=== PATIENT | male | born 1975 | race Caucasian/White ===

== ENCOUNTER 2023-08-07 16:30 | Emergency (ER) | payer MEDICARE, MEDICAID, SELFPAY ==
[2023-08-07 16:31] VITALS: BP 108/72; PULSE 103; RESP 15; TEMP 36.8; O2SAT 94; BMI 38.4
--- NOTE | 2023-08-07 16:33 | HMH.EDGENADL ---
Discharge Plan Disposition Patient Disposition: Home, Self-Care Condition: Good Prescriptions Prescriptions: New clindamycin HCl 300 mg capsule 300 mg PO Q12H Qty: 20 0RF sulfamethoxazole-trimethoprim [Bactrim DS] 800-160 mg tablet 1 tab PO DAILY 10 Days Qty: 10 0RF Referrals Follow up/Referrals: Provider,Referral, [Primary Care Provider] - See instructions Kylie Feliciano DPM [Staff Physician] - See instructions Clinical Impressions Clinical Impression: Diabetic foot ulcer Qualifiers: Diabetic foot ulcer location: toe Laterality: right Instructions Patient Instructions: DI for Laceration Repair Discharge ED Provider: Ava Pinedo General Adult HPI <MIRACLE Saavedra - Last Filed: 08/07/23 17:43> General Chief complaint: Wound/Laceration Stated complaint: pressure ulcer Big toe RT foot Time Seen by Provider: 08/07/23 16:33 History of Present Illness HPI narrative: Patient presents for evaluation of a diabetic foot ulcer. Patient has had a known diabetic foot ulcer of the plantar surface of the right hallux for over a year. Patient last saw a physician for this more than 6 months ago. Patient continues to smoke 2 packs a day. Patient noted that it is turned red and began to be more hurtful at the MCP joint over the last 2 to 3 days. Patient denies chest pain fever chills hemoptysis hematochezia melena nausea vomiting diarrhea. Related Data Previous Rx's Medication Instructions Recorded clindamycin HCl 300 mg capsule 300 mg PO Q12H #20 caps 08/07/23 sulfamethoxazole 800 1 tab PO DAILY 10 days #10 tabs 08/07/23 mg-trimethoprim 160 mg tablet (Bactrim DS) Allergies Allergy/AdvReac Type Severity Reaction Status Date / Time azithromycin [From Zithromax] Allergy Verified 08/07/23 16:43 PFS <MIRACLE Saavedra - Last Filed: 08/07/23 17:43> [facility] Disclaimer: The information contained in this section may have been updated after the patient was seen, as this information can be updated by other users. Social History (Updated 08/07/23 @ 17:43 by MIRACLE Saavedra) Smoking Status: Current every day smoker alcohol intake: never current occupational status: unemployed Travel in the last 8 weeks: None <MIRACLE Saavedra - Last Filed: 08/07/23 17:43> ROS Obtained: Yes Systems reviewed as appropriate & no additional complaints except as documented Physical Exam <MIRACLE Saavedra - Last Filed: 08/07/23 17:43> General General appearance: alert and in no apparent distress Head Head exam: atraumatic and normal inspection Eye Eye exam: Present normal appearance and EOMI ENT ENT exam: Present normal exam, normal oropharynx and mucous membranes moist Neck Neck exam: Present normal inspection Respiratory Respiratory exam: Present normal lung sounds bilaterally Cardiovascular Cardiovascular exam: Present regular rate and normal rhythm Abdominal Exam Abdominal exam: Absent normal bowel sounds Extremities Exam Extremities exam: Present normal inspection (Bilateral upper extremities are intact grossly to exam full range of motion) Neurological Exam Neurological exam: Present alert and oriented X3 Lymphatic Lymphatic Findings: no adenopathy Other Other exam information: Lamination of the bilateral lower extremities shows that them both to be hairless. Patient has already had amputations of the fourth and fifth toes of the right foot. On the plantar surface of the right hallux there is a quarter sized area that is ulcerated with a thick keratinized collar there is no purulent debris however the wound extends to the soft tissue at the MCP joint. There is some fibrinous exudate. There is erythema extending from the MCP joint medially along the medial aspect of the foot towards the medial malleolus. The borders have been marked by myself with an ink pen. There is no edema or induration. Medical Decision Making <MIRACLE Saavedra - Last Filed: 08/07/23 17:43> Medical Records Medical records reviewed: Yes I reviewed the patient's medical records. Luca Inquiry Pt receiving controlled substance: No Vital Signs: 08/07/23 16:31 08/07/23 16:54 08/07/23 17:00 Temperature 98.2 F Temperature Source Oral Pulse Rate 111 H 104 H Pulse Rate [Left Radial] 103 H Respiratory Rate 15 Blood Pressure 149/75 H 143/81 H Blood Pressure [Right Arm] 108/72 L Blood Pressure Mean 82 89 Blood Pressure Mean [Right Arm] 84 Blood Pressure Source 02 Sat by Pulse Oximetry 94 L 93 L 94 L Oxygen Delivery Method Room Air 08/07/23 17:44 Temperature 98.2 F Temperature Source Oral Pulse Rate 99 H Pulse Rate [Left Radial] Respiratory Rate 20 Blood Pressure 132/62 Blood Pressure [Right Arm] Blood Pressure Mean Blood Pressure Mean [Right Arm] Blood Pressure Source Automatic Cuff 02 Sat by Pulse Oximetry Oxygen Delivery Method Room Air Lab Data Lab results reviewed: Yes I reviewed the patient's lab results. Lab Results 08/07/23 16:50: WBC 12.3 H, RBC 5.19, Hgb 16.2, Hct 49.7, MCV 95.8 H, MCH 31.2, MCHC 32.6, RDW 13.6, Plt Count 194, MPV 8.7, Neut % (Auto) 75.0, Lymph % (Auto) 17.5, [place] % (Auto) 4.5, Eos % (Auto) 2.0, Baso % (Auto) 1.0, Neut # (Auto) 9.2 H, Lymph # (Auto) 2.2, [place] # (Auto) 0.6, Eos # (Auto) 0.2, Baso # (Auto) 0.1, ESR 23 H, Sodium 133 L, Potassium 4.4, Chloride 100, Carbon Dioxide 31 H, Anion Gap 6.4, BUN 12, Creatinine 0.90, Estimated Creat Clear 169, Estimated GFR 90, Est GFR ( Amer) 109, Glucose 308 H, Calcium 9.3, C-Reactive Protein 44.1 H 08/07/23 16:50 08/07/23 16:50 Orders (Tests/Meds): ED MEDICATIONS Discontinued Medications Generic Name Dose Route Start Last Admin Trade Name Freq PRN Reason Stop Dose Admin Acetaminophen 1,000 mg 08/07/23 16:49 08/07/23 16:57 Acetaminophen 500mg Tab PO 08/07/23 16:50 1,000 mg ONCE ONE Administration Ketorolac Tromethamine 15 mg 08/07/23 16:49 08/07/23 16:57 Ketorolac 30mg/Ml Vial IV 08/07/23 16:50 15 mg ONCE ONE Administration ORDERS Category Date Time Status Foot XR right minimum 3 views [XR foot RT min 3V] Stat Exams 08/07/23 16:42 Completed BMP [Basic Metabolic Panel] Stat Lab 08/07/23 16:50 Completed CBC w/Auto Diff [Complete Blood Count Auto Diff] Stat Lab 08/07/23 16:50 Completed CRP [C-Reactive Protein] Stat Lab 08/07/23 16:50 Completed Erythrocyte Sedimentation Rate Stat Lab 08/07/23 16:50 Completed Medical Decision Narrative: In summary patient is a in summary patient is a 48-year-old male who presents to the emergency department for evaluation of diabetic foot ulcer of the right hallux. Patient is hemodynamically stable upon arrival, febrile. Physical exam is remarkable for well-established diabetic foot ulcer with very thick keratinized border with no evidence of purulence but with fibrinous exudate at the ulcer base. There is an area of erythema at the MCP joint spreading medially towards the medial malleolus. The borders of the marked by an ink pen by myself. Differential diagnosis includes diabetic foot ulcer versus osteomyelitis versus septic joint versus deep space abscess versus necrotizing fasciitis Cetera. Initial workup will be conducted with mental logic labs plain film x-rays. Initial interventions include Toradol and Tylenol. Initial workup reviewed by me shows a glucose of 300 slightly elevated white count with an absolute neutrophil count of 9.2 and my informal interpretation of his plain film x-ray of his right foot shows no obvious bony destruction or other acute processes. Upon repeat evaluation patient had acceptable resolution of his pain. Given this appropriate for discharge with prescriptions for Bactrim and clindamycin with a referral to podiatry. <Ava Pinedo MD - Last Filed: 08/07/23 19:35> Vital Signs: 08/07/23 16:31 08/07/23 16:54 08/07/23 17:00 Temperature 98.2 F Temperature Source Oral Pulse Rate 111 H 104 H Pulse Rate [Left Radial] 103 H Respiratory Rate 15 Blood Pressure 149/75 H 143/81 H Blood Pressure [Right Arm] 108/72 L Blood Pressure Mean 82 89 Blood Pressure Mean [Right Arm] 84 Blood Pressure Source 02 Sat by Pulse Oximetry 94 L 93 L 94 L Oxygen Delivery Method Room Air 08/07/23 17:44 Temperature 98.2 F Temperature Source Oral Pulse Rate 99 H Pulse Rate [Left Radial] Respiratory Rate 20 Blood Pressure 132/62 Blood Pressure [Right Arm] Blood Pressure Mean Blood Pressure Mean [Right Arm] Blood Pressure Source Automatic Cuff 02 Sat by Pulse Oximetry Oxygen Delivery Method Room Air Lab Data Lab Results 08/07/23 16:50: WBC 12.3 H, RBC 5.19, Hgb 16.2, Hct 49.7, MCV 95.8 H, MCH 31.2, MCHC 32.6, RDW 13.6, Plt Count 194, MPV 8.7, Neut % (Auto) 75.0, Lymph % (Auto) 17.5, [place] % (Auto) 4.5, Eos % (Auto) 2.0, Baso % (Auto) 1.0, Neut # (Auto) 9.2 H, Lymph # (Auto) 2.2, [place] # (Auto) 0.6, Eos # (Auto) 0.2, Baso # (Auto) 0.1, ESR 23 H, Sodium 133 L, Potassium 4.4, Chloride 100, Carbon Dioxide 31 H, Anion Gap 6.4, BUN 12, Creatinine 0.90, Estimated Creat Clear 169, Estimated GFR 90, Est GFR ( Amer) 109, Glucose 308 H, Calcium 9.3, C-Reactive Protein 44.1 H Orders (Tests/Meds): ED MEDICATIONS Discontinued Medications Generic Name Dose Route Start Last Admin Trade Name Freq PRN Reason Stop Dose Admin Acetaminophen 1,000 mg 08/07/23 16:49 08/07/23 16:57 Acetaminophen 500mg Tab PO 08/07/23 16:50 1,000 mg ONCE ONE Administration Ketorolac Tromethamine 15 mg 08/07/23 16:49 08/07/23 16:57 Ketorolac 30mg/Ml Vial IV 08/07/23 16:50 15 mg ONCE ONE Administration ORDERS Category Date Time Status Foot XR right minimum 3 views [XR foot RT min 3V] Stat Exams 08/07/23 16:42 Completed BMP [Basic Metabolic Panel] Stat Lab 08/07/23 16:50 Completed CBC w/Auto Diff [Complete Blood Count Auto Diff] Stat Lab 08/07/23 16:50 Completed CRP [C-Reactive Protein] Stat Lab 08/07/23 16:50 Completed Erythrocyte Sedimentation Rate Stat Lab 08/07/23 16:50 Completed Medical Decision Narrative: In summary patient is a in summary patient is a 48-year-old male who presents to the emergency department for evaluation of diabetic foot ulcer of the right hallux. Patient is hemodynamically stable upon arrival, febrile. Physical exam is remarkable for well-established diabetic foot ulcer with very thick keratinized border with no evidence of purulence but with fibrinous exudate at the ulcer base. There is an area of erythema at the MCP joint spreading medially towards the medial malleolus. The borders of the marked by an ink pen by myself. Differential diagnosis includes diabetic foot ulcer versus osteomyelitis versus septic joint versus deep space abscess versus necrotizing fasciitis Cetera. Initial workup will be conducted with mental logic labs plain film x-rays. Initial interventions include Toradol and Tylenol. Initial workup reviewed by me shows a glucose of 300 slightly elevated white count with an absolute neutrophil count of 9.2 and my informal interpretation of his plain film x-ray of his right foot shows no obvious bony destruction or other acute processes. At this time he does not seem to have signs on his physical exam, labs, or x-rays of osteomyelitis, necrotizing fasciitis, but more likely has superimposed cellulitis on a chronic nonhealing diabetic foot ulcer. Upon repeat evaluation patient had acceptable resolution of his pain. Given this appropriate for discharge with prescriptions for Bactrim and clindamycin with a referral to podiatry. Attestation: I was consulted by the JESSE, and we discussed the complexity of the problems being addressed. I approved the treatment and management plan for this patient's care in the emergency department, thus performing a substantive portion of the medical decision making. I also had interactive discussion with patient, counseling him on tobacco cessation and advising him that this is essential to prevent worsening of his foot wound. Signed, Ava Pinedo MD Critical Care <MIRACLE Saavedra - Last Filed: 08/07/23 17:43> Critical Care Time Critical Care Time: No
--- NOTE | 2023-08-07 16:42 | XR_ITS ---
PROCEDURE INFORMATION: Exam: XR Right Foot Exam date and time: 08/07/2023 4:59 PM Age: 48 years old Clinical indication: Condition or disease; Other: Diabetic foot ulcer; Prior surgery; Surgery date: 6+ months; Surgery type: Toes removed TECHNIQUE: Imaging protocol: Radiologic exam of the right foot. Views: 3 or more views. COMPARISON: No relevant prior studies available. FINDINGS: Bones/joints: Previous amputation of the 4th and 5th toes at the level of the proximal diaphyses of the 4th and 5th metatarsals. No cortical erosion or periosteal reaction. No fracture or dislocation. Small posterior calcaneal enthesophyte. Soft tissues: Normal. IMPRESSION: 1. Previous amputation of the 4th and 5th toes. 2. No acute findings.
[2023-08-07 16:54] VITALS: BP 149/75; PULSE 111; O2SAT 93
[2023-08-07] MEDS: ACETAMINOPHEN 500MG TAB 1000 MG PO (16:57)
[2023-08-07] MEDS: KETOROLAC 30MG/ML VIAL 15 MG IV (16:57)
[2023-08-07 16:59] LABS: Basophils # 0.1 K/mm3 (0-0.2); Eosinophils # 0.2 K/mm3 (0.0-0.4); Hematocrit 49.7 % (42.0-52.0); Hemoglobin 16.2 g/dL (14.1-18.0); Lymphocytes # 2.2 K/mm3 (0.7-4.5); Lymphocytes % 17.5 % (10-50); Mean Corpuscular HGB Conc 32.6 g/dL (31.8-35.4); Mean Corpuscular Hemoglobin 31.2 pg (27.0-31.2); Mean Corpuscular Volume 95.8 fl (80-94); Mean Platelet Volume 8.7 fl (7.4-10.4); Monocytes # 0.6 K/mm3 (0.1-1.0); Monocytes % 4.5 % (1.7-9.3); Neutrophils # 9.2 K/mm3 (1.8-7.8); Platelet Count 194 K/mm3 (142-424); Red Blood Count 5.19 M/mm3 (4.60-6.20); Red Cell Distribution Width 13.6 % (11.5-17.5); White Blood Count 12.3 K/mm3 (4.8-10.8)
[2023-08-07 17:00] VITALS: BP 143/81; PULSE 104; O2SAT 94
[2023-08-07 17:06] LABS: Chloride 100 mmol/L (98-107); Potassium 4.4 mmoL/L (3.5-5.1)
[2023-08-07 17:09] LABS: Blood Urea Nitrogen 12 mg/dl (9-20); Carbon Dioxide 31 mmol/L (22.0-30.0); Creatinine Clearance Estimated 169 mL/min (50-200); Estimated Glomerular Filt Rate 90 ml/min (>60); GFR (African American) 109 ML/MIN (>60)
[2023-08-07 17:10] LABS: Calcium 9.3 mg/dl (8.4-10.2); Glucose 308 mg/dl (74-100)
[2023-08-07 17:15] LABS: C-Reactive Protein 44.1 mg/L (0-4)
[2023-08-07 17:20] LABS: Anion Gap 6.4 mEq/L (5-15); Sodium 133 mmol/L (136-145)
[2023-08-07 17:29] LABS: Erythrocyte Sedimentation Rate 23 mm/hr (0-15)
[2023-08-07 17:44] VITALS: BP 132/62; PULSE 99; RESP 20; TEMP 36.8; O2SAT 96
== END 2023-08-07 17:48 | disposition home or self-care (01) ==
PROVIDERS: Physician Assistant; Emergency Provider Emergency Medicine
DX: E11.621 Type 2 diabetes mellitus with foot ulcer (principal); E11.65 Type 2 diabetes mellitus with hyperglycemia; E87.1 Hypo-osmolality and hyponatremia; F17.210 Nicotine dependence, cigarettes, uncomplicated; Z56.0 Unemployment, unspecified
CPT/HCPCS: 73630; 80048; 85025; 85651; 86140; 96374; 99284

== ENCOUNTER 2023-10-13 13:41 | Emergency (ER) | payer MEDICARE, SELFPAY ==
[2023-10-13 13:43] VITALS: BP 135/85; PULSE 100; RESP 14; TEMP 36.8; O2SAT 95; BMI 35.4
[2023-10-13 13:49] VITALS: BP 135/85; PULSE 100; O2SAT 95
[2023-10-13 14:00] VITALS: BP 143/78; PULSE 98; O2SAT 95
--- NOTE | 2023-10-13 14:05 | PC.NURSE ---
RICHA BUTLER AT BEDSIDE
--- NOTE | 2023-10-13 14:08 | XR_ITS ---
FINAL REPORT CLINICAL HISTORY: stepped on a nail FINDINGS: RIGHT FOOT 2 views of the right foot were obtained. There is no acute fracture or dislocation. There are postoperative changes of amputation of the fourth and fifth metatarsals. Visualized joint spaces are normally aligned. Soft tissues are unremarkable. No radiopaque foreign body is identified. IMPRESSION: No acute bony abnormality. No radiopaque foreign body. Reviewed, Interpreted and Dictated by Kashmir Pardo MD Transcribed by Latoya Tamez Authenticated and [facility]
--- NOTE | 2023-10-13 14:10 | ED_ITS ---
<Statement entered by Julius Timmons MD - 10/13/23 15:21> I was consulted by the JESSE, and we discussed the complexity of the problems being addressed. I approved the treatment and management plan for this patient's care in the emergency department, thus performing a substantive portion of the medical decision making. Julius Timmons MD Discharge Plan Disposition Patient Disposition: Home, Self-Care Prescriptions Prescriptions: New levofloxacin 500 mg tablet 500 mg PO DAILY 10 Days Qty: 10 0RF sulfamethoxazole-trimethoprim [Bactrim DS] 800-160 mg tablet 1 tab PO BID 10 Days Qty: 20 0RF No Action clindamycin HCl 300 mg capsule 300 mg PO Q12H Qty: 20 0RF sulfamethoxazole-trimethoprim [Bactrim DS] 800-160 mg tablet 1 tab PO DAILY 10 Days Qty: 10 0RF Referrals Follow up/Referrals: Provider,Referral, [Primary Care Provider] - See instructions Activity Restrictions/Add. Instructions Additional Instructions/Restrictions: Please follow-up with Dr. Feliciano this week. Return to ER for any worsening signs or symptoms including redness pain drainage as needed Clinical Impressions Clinical Impression: Puncture wound of right foot Qualifiers: Encounter type: initial encounter Qualified Code(s): S91.331A - Puncture wound without foreign body, right foot, initial encounter Instructions Patient Instructions: DI for Puncture Wound Discharge ED Provider: Julius Timmons General Adult [facility] General Chief complaint: Wound/Laceration Stated complaint: AO, puncture in R foot Time Seen by Provider: 10/13/23 14:05 Mode of Arrival: Ambulatory Source of Information: Patient Limitations: No Limitations Description of Symptoms (Recalled from ER Triage Doc. by RN): pt presents to ED with puncture to right foot. pt reports he was walking around feeding the animals, he assumes that while he was doing this he stepped on a nail. pt reports when he got home and took his shoes off he noticed blood. pt reports he also has a diabetic foot uler on his right great toe that has been there approx 1 year, and pt does follow with podiatry History of Present Illness HPI narrative: Patient presents for a right foot wound. Patient was working in his yard yesterday and got a screw through the bottom of his boot. Patient was unaware as he has diabetic neuropathy. He already has a diabetic foot ulcer at the hallux of the same foot. Patient has no pain no swelling no fever no chills. Related Data Previous Rx's Medication Instructions Recorded clindamycin HCl 300 mg capsule 300 mg PO Q12H #20 caps 08/07/23 sulfamethoxazole 800 1 tab PO DAILY 10 days #10 tabs 08/07/23 mg-trimethoprim 160 mg tablet (Bactrim DS) levofloxacin 500 mg tablet 500 mg PO DAILY 10 days #10 tabs 10/13/23 sulfamethoxazole 800 1 tab PO BID 10 days #20 tabs 10/13/23 mg-trimethoprim 160 mg tablet (Bactrim DS) Allergies Allergy/AdvReac Type Severity Reaction Status Date / Time azithromycin [From Zithromax] Allergy Verified 08/13/23 10:43 [facility] Disclaimer: The information contained in this section may have been updated after the patient was seen, as this information can be updated by other users. Social History Smoking Status: Current every day smoker alcohol intake: never current occupational status: unemployed Travel in the last 8 weeks: None ROS Obtained: Yes Systems reviewed as appropriate & no additional complaints except as documented Physical Exam General General appearance: alert and in no apparent distress Neck Neck exam: Present lymphadenopathy Respiratory Respiratory exam: Present normal lung sounds bilaterally Cardiovascular Cardiovascular exam: Present regular rate and normal rhythm Expanded Lower Extremity Exam Right: Bottom foot image: 2 1. Puncture wound 2. Diabetic foot ulcer Neurological Exam Neurological exam: Present alert and oriented X3 Medical Decision Making Medical Records Medical records reviewed: Yes I reviewed the patient's medical records. Luca Inquiry Pt receiving controlled substance: No Vital Signs: 10/13/23 13:43 10/13/23 13:49 10/13/23 14:00 Temperature 98.3 F Temperature Source Oral Pulse Rate 100 H 98 H Pulse Rate [Left Radial] 100 H Respiratory Rate 14 Blood Pressure 135/85 143/78 H Blood Pressure [Right Arm] 135/85 Blood Pressure Mean 98 93 Blood Pressure Mean [Right Arm] 101 02 Sat by Pulse Oximetry 95 95 95 Oxygen Delivery Method Room Air Room Air Room Air 10/13/23 14:30 10/13/23 14:58 Temperature 98.3 F Temperature Source Pulse Rate 91 H 92 H Pulse Rate [Left Radial] Respiratory Rate 16 Blood Pressure 135/72 135/72 Blood Pressure [Right Arm] Blood Pressure Mean 86 Blood Pressure Mean [Right Arm] 02 Sat by Pulse Oximetry 100 Oxygen Delivery Method Orders (Tests/Meds): ED MEDICATIONS Discontinued Medications Generic Name Dose Route Start Last Admin Trade Name Shai PRN Reason Stop Dose Admin Levofloxacin 500 mg 10/13/23 14:28 10/13/23 14:47 Levofloxacin 500mg Tab PO 10/13/23 14:29 500 mg ONCE ONE Administration Tetanus/Reduced Diphtheria/Acell Pertussis 0.5 ml 10/13/23 14:38 10/13/23 14:46 Tet/Diphth/Pert-Adult 0.5ml Syringe IM 10/13/23 14:39 0.5 ml .ONCE ONE Administration Trimethoprim/Sulfamethoxazole 1 each 10/13/23 14:28 10/13/23 14:47 Sulfa/Trimethoprim 1 Tablet PO 10/13/23 14:29 1 each ONCE ONE Administration ORDERS Category Date Time Status Foot XR right 2 views [XR foot RT 2V] Stat Exams 10/13/23 14:08 Taken Medical Decision Narrative: In summary patient is a 48-year-old male who presents to the emergency department for evaluation of a wound to his right foot. Patient is hemodynamically stable upon arrival, afebrile. Physical exam of the right foot shows that he has lost the fifth digit due to surgical amputation. Patient has a diabetic foot ulcer at the MTP joint of the first toe on the plantar surface that does not show evidence of active cellulitis pus or infection. At the lateral aspect of the plantar surface there is a puncture wound approximately midshaft of the fifth metatarsal that is fairly open not draining no cellulitis or erythema noted. It is nontender to palpation however patient is numb due to peripheral neuropathy. Differential diagnosis includes complicated puncture versus bony involvement. Initial workup will be conducted with plain film x- rays. Initial interventions include Levaquin and Bactrim first doses. Initial workup reviewed by me shows no fracture or bony involvement. Wound irrigated and patient referred back to Dr. Feliciano with whom he is already established for the previous diabetic foot ulcer for close follow-up. Critical Care Critical Care Time Critical Care Time: No
--- NOTE | 2023-10-13 14:10 | PC.NURSE ---
XR AT BEDSIDE
[2023-10-13 14:30] VITALS: BP 135/72; PULSE 91; O2SAT 100
[2023-10-13] MEDS: TET/DIPHTH/PERT-ADULT 0.5ML SYRINGE 0.5 ML IM (14:46)
[2023-10-13] MEDS: SULFA/TRIMETHOPRIM 1 TABLET 1 EACH PO (14:47)
[2023-10-13] MEDS: levoFLOXacin 500MG TAB 500 MG PO (14:47)
[2023-10-13 14:58] VITALS: BP 135/72; PULSE 92; RESP 16; TEMP 36.8
== END 2023-10-13 15:00 | disposition home or self-care (01) ==
PROVIDERS: Emergency Provider Emergency Medicine
DX: S91.331A Puncture wound without foreign body, right foot, initial encounter (principal); F17.210 Nicotine dependence, cigarettes, uncomplicated; E11.40 Type 2 diabetes mellitus with diabetic neuropathy, unspecified; E11.621 Type 2 diabetes mellitus with foot ulcer; Z89.421 Acquired absence of other right toe(s); W45.0XXA Nail entering through skin, initial encounter; Z23 Encounter for immunization; L97.519 Non-pressure chronic ulcer of other part of right foot with unspecified severity
CPT/HCPCS: 73620; 90471; 90715; 99283

== ENCOUNTER 2024-01-12 13:00 | Outpatient (CLI) | payer MEDICARE, MEDICAID, SELFPAY ==
--- NOTE | 2024-01-12 13:12 | XR_ITS ---
FINAL REPORT CLINICAL HISTORY: right foot ulcers COMPARISON: 10/13/2023 FINDINGS: AP, oblique and lateral views of the right foot were obtained. Postoperative changes are noted, with resection of the fourth and fifth digits at the bases of the metatarsals. There is no acute fracture or dislocation. No focal areas of bone destruction are visualized. Mild degenerative changes present most severe in the midfoot. Dorsal soft tissue swelling is present. IMPRESSION: Postoperative change as described, stable since the prior exam of October 12. No acute bony abnormality is identified and no focal areas of bone destruction are visualized. Reviewed, Interpreted and Dictated by Inna Gaytan MD Transcribed by Janeth Longo Authenticated and [facility]
[2024-01-12 13:28] LABS: Basophils # 0.1 K/mm3 (0-0.2); Basophils % 0.9 % (0.1-2.0); Eosinophils # 0.2 K/mm3 (0.0-0.4); Eosinophils % 1.8 % (0.1-12.0); Hematocrit 50.5 % (42.0-52.0); Hemoglobin 16.6 g/dL (14.1-18.0); Lymphocytes # 1.9 K/mm3 (0.7-4.5); Lymphocytes % 19.5 % (10-50); Mean Corpuscular HGB Conc 32.9 g/dL (31.8-35.4); Mean Corpuscular Hemoglobin 29.3 pg (27.0-31.2); Mean Corpuscular Volume 89.1 fl (80-94); Monocytes # 0.5 K/mm3 (0.1-1.0); Monocytes % 4.9 % (1.7-9.3); Neutrophils # 7.2 K/mm3 (1.8-7.8); Neutrophils % 72.8 % (37.0-80.0); Platelet Count 208 K/mm3 (142-424); Red Blood Count 5.66 M/mm3 (4.60-6.20); Red Cell Distribution Width 13.9 % (11.5-17.5); White Blood Count 9.9 K/mm3 (4.8-10.8)
[2024-01-12 14:01] LABS: Potassium 4.5 mmoL/L (3.5-5.1); Sodium 132 mmol/L (136-145)
[2024-01-12 14:03] LABS: Alanine Aminotransferase 27 U/L (12-78); Anion Gap 8.5 mEq/L (5-15); Aspartate Amino Transferase 23 U/L (17-59); Blood Urea Nitrogen 10 mg/dl (9-20); Estimated Glomerular Filt Rate 144 ml/min (>60); GFR (African American) 175 ML/MIN (>60)
[2024-01-12 14:04] LABS: Alkaline Phosphatase 75 U/L (38-126); Bilirubin,Total 0.6 mg/dl (0.2-1.3); Calcium 9.4 mg/dl (8.4-10.2); Glucose 340 mg/dl (74-100); Total Protein,Serum 6.9 g/dl (6.3-8.2)
[2024-01-12 14:15] LABS: Erythrocyte Sedimentation Rate 6 mm/hr (0-15)
[2024-01-12 14:19] LABS: C-Reactive Protein 26.3 mg/L (0-4)
[2024-01-12 15:03] LABS: Hemoglobin A1C 12.1 % (4.0-6.0)
[2024-01-12 17:41] LABS: Chloride 102 mmol/L (98-107)
[2024-01-12 17:42] LABS: Carbon Dioxide 26 mmol/L (22.0-30.0)
[2024-01-12 17:43] LABS: Albumin Level 3.9 g/dl (3.5-5.0); Albumin/Globulin Ratio 1.3 (1.1-1.8)
== END 2024-01-12 23:59 | disposition home or self-care (01) ==
LOC: LAB 13:01
PROVIDERS: Visit Provider Podiatrist
DX: L97.509 Non-pressure chronic ulcer of other part of unspecified foot with unspecified severity (principal); E11.621 Type 2 diabetes mellitus with foot ulcer; S91.331A Puncture wound without foreign body, right foot, initial encounter; L97.515 Non-pressure chronic ulcer of other part of right foot with muscle involvement without evidence of necrosis; L03.115 Cellulitis of right lower limb
CPT/HCPCS: 36415; 73630; 80053; 83036; 85025; 85651; 86140; 87070; 87077; 87186; 87205

== ENCOUNTER 2024-02-11 08:27 | Outpatient (CLI) | payer MEDICARE, MEDICAID, SELFPAY ==
--- NOTE | 2024-02-11 08:27 | CT_ITS ---
FINAL REPORT CLINICAL HISTORY: evaluate ulcers of right foot. lateral foot swelling FINDINGS: CT RIGHT FOOT WITHOUT AND WITH CONTRAST TECHNIQUE: Axial and reformatted sagittal and coronal images were obtained of the right foot before and after the injection of IV contrast. This study was performed with techniques to keep radiation doses as low as reasonably achievable, (ALARA). Individualized dose reduction techniques using automated exposure control or adjustment of mA and/or kV according to the patient's size were employed. FINDINGS: There is no acute fracture. There is a small os trigonum measuring 9 mm. A mild Summer deformity is noted. The mortise is intact. Degenerative cyst formation is present at the mid articular facet of the subtalar joint. There is a large ulcer along the plantar aspect of the midfoot. Ulcerative defect measures 1.4 cm. There is underlying soft tissue edema. There is no bony erosion or periosteal reaction. IMPRESSION: Large plantar ulcer without definite underlying osteomyelitis. Reviewed, Interpreted and Dictated by Tj Paiz MD Transcribed by Chasity Tyler Authenticated and [facility]
[2024-02-11] MEDS: SODIUM CHLORIDE 0.9% 10ML SYR (RAD ONLY) 10 ML IV (09:00)
[2024-02-11] MEDS: IOPAMIDOL-370 (76%);100ML BOTTLE 75 ML IV (09:00)
== END 2024-02-11 23:59 | disposition home or self-care (01) ==
LOC: RAD 08:27
PROVIDERS: PCP Podiatrist; Visit Provider Podiatrist
DX: E11.621 Type 2 diabetes mellitus with foot ulcer (principal); L97.515 Non-pressure chronic ulcer of other part of right foot with muscle involvement without evidence of necrosis; L03.115 Cellulitis of right lower limb; S91.331A Puncture wound without foreign body, right foot, initial encounter
CPT/HCPCS: 73702; Q9967

== ENCOUNTER 2024-02-24 11:06 | Outpatient (CLI) | payer MEDICARE, SELFPAY ==
--- NOTE | 2024-02-24 11:12 | XR_ITS ---
PROCEDURE INFORMATION: Exam: XR Right Foot Exam date and time: 02/24/2024 11:15 AM Age: 49 years old Clinical indication: Other: Diabetic foot ulcer; Prior surgery; Surgery date: 6+ months; Surgery type: Amputation; Patient HX: Ulcer, plantar surface, towards lateral side TECHNIQUE: Imaging protocol: Radiologic exam of the right foot. Views: 3 or more views. COMPARISON: CT FOOT RT WO/W CON 02/11/2024 8:45 AM FINDINGS: Bones/joints: Absence of the 4th and 5th toes and most of the 4th and 5th metatarsals.. Degenerative changes in the IP joint. No definite osteolytic process.. Soft tissues: Soft tissue swelling of the great toe IMPRESSION: 1. Absence of the 4th and 5th toes and most of the 4th and 5th metatarsals.. 2. No definite osteolytic process..
[2024-02-24 12:00] LABS: Basophils # 0.1 K/mm3 (0-0.2); Basophils % 0.5 % (0.1-2.0); Eosinophils # 0.1 K/mm3 (0.0-0.4); Eosinophils % 0.8 % (0.1-12.0); Hematocrit 49.6 % (42.0-52.0); Lymphocytes # 1.5 K/mm3 (0.7-4.5); Mean Corpuscular HGB Conc 34.2 g/dL (31.8-35.4); Mean Corpuscular Hemoglobin 29.5 pg (27.0-31.2); Mean Corpuscular Volume 86.2 fl (80-94); Mean Platelet Volume 8.7 fl (7.4-10.4); Monocytes # 0.7 K/mm3 (0.1-1.0); Monocytes % 4.9 % (1.7-9.3); Neutrophils # 11.5 K/mm3 (1.8-7.8); Neutrophils % 82.8 % (37.0-80.0); Platelet Count 200 K/mm3 (142-424); Red Blood Count 5.76 M/mm3 (4.60-6.20); Red Cell Distribution Width 13.5 % (11.5-17.5); White Blood Count 13.8 K/mm3 (4.8-10.8)
[2024-02-24 12:42] LABS: Alanine Aminotransferase 25 U/L (12-78); Albumin Level 4.2 g/dl (3.5-5.0); Albumin/Globulin Ratio 1.4 (1.1-1.8); Alkaline Phosphatase 72 U/L (38-126); Anion Gap 22.6 mEq/L (5-15); Aspartate Amino Transferase 26 U/L (17-59); Bilirubin,Total 0.6 mg/dl (0.2-1.3); Blood Urea Nitrogen 13 mg/dl (9-20); Calcium 9.8 mg/dl (8.4-10.2); Carbon Dioxide 21 mmol/L (22.0-30.0); Chloride 96 mmol/L (98-107); Estimated Glomerular Filt Rate 144 ml/min (>60); GFR (African American) 174 ML/MIN (>60); Glucose 163 mg/dl (74-100); Potassium 4.6 mmoL/L (3.5-5.1); Sodium 135 mmol/L (136-145); Total Protein,Serum 7.2 g/dl (6.3-8.2)
[2024-02-24 13:02] LABS: Erythrocyte Sedimentation Rate 8 mm/hr (0-15)
[2024-02-24 13:05] LABS: Hemoglobin A1C 12.5 % (4.0-6.0)
== END 2024-02-24 23:59 | disposition home or self-care (01) ==
LOC: LAB 11:08
PROVIDERS: PCP Nurse Practitioner Family; Visit Provider Podiatrist
DX: M79.671 Pain in right foot (principal); M79.672 Pain in left foot; L84 Corns and callosities; E11.9 Type 2 diabetes mellitus without complications; S91.331A Puncture wound without foreign body, right foot, initial encounter; L97.509 Non-pressure chronic ulcer of other part of unspecified foot with unspecified severity; E11.621 Type 2 diabetes mellitus with foot ulcer; L97.515 Non-pressure chronic ulcer of other part of right foot with muscle involvement without evidence of necrosis
CPT/HCPCS: 36415; 73630; 80053; 83036; 85025; 85651; 86140; 87077; 87186; 88304

== ENCOUNTER 2024-03-04 06:59 | Outpatient (CLI) | payer MEDICARE, SELFPAY ==
--- NOTE | 2024-03-04 07:05 | CT_ITS ---
FINAL REPORT TECHNIQUE: Thin section axial CT images with coronal and sagittal reformats were performed. This study was performed with techniques to keep radiation doses as low as reasonably achievable (ALARA). Individualized dose reduction techniques using automated exposure control or adjustment of mA and/or kV according to the patient''s size were employed. CLINICAL HISTORY: .r/o osteomyelitis COMPARISON: 02/11/2024 FINDINGS: There has been amputation of the fourth and fifth digits at the level of the proximal fourth and fifth metatarsals. Mild degenerative changes are present. There are erosions of the distal aspect of the first proximal phalanx and proximal aspect of the first distal phalanx. There is a presumed pathologic fracture involving the distal aspect of the first proximal phalanx. Soft tissue calcifications are seen adjacent to the first interphalangeal joint. There is a presumed ulcer at its plantar aspect. Findings are consistent with osteomyelitis/septic arthritis. There is soft tissue ulceration at the plantar lateral midfoot without adjacent bony abnormality. There is soft tissue edema/inflammation of the midfoot and forefoot. IMPRESSION: Osteomyelitis/septic arthritis of the first digit. Presumed pathologic fracture of the first proximal phalanx. Reviewed, Interpreted and Dictated by Everardo Martini III, MD Transcribed by Ana Paula Quintanilla Authenticated and [facility]
== END 2024-03-04 23:59 | disposition home or self-care (01) ==
LOC: RAD 07:00
PROVIDERS: PCP Nurse Practitioner Family; Visit Provider Podiatrist
DX: E11.621 Type 2 diabetes mellitus with foot ulcer (principal); L97.515 Non-pressure chronic ulcer of other part of right foot with muscle involvement without evidence of necrosis
CPT/HCPCS: 73700

== ENCOUNTER 2024-03-11 10:00 | Outpatient (CLI) | payer MEDICARE, SELFPAY ==
[2024-03-11 11:12] VITALS: BMI 31.8
--- NOTE | 2024-03-11 11:12 | XR_ITS ---
PROCEDURE INFORMATION: Exam: XR Chest Exam date and time: 03/11/2024 11:18 AM Age: 49 years old Clinical indication: Device placement; Picc; Additional info: Picc line placement TECHNIQUE: Imaging protocol: Radiologic exam of the chest. Views: 1 view. COMPARISON: No relevant prior studies available. FINDINGS: Tubes, catheters and devices: There is a left-sided PICC line with its tip just crossing the midline questionably within the left innominate artery origin of the superior vena cava. Lungs: Unremarkable. No consolidation. Pleural spaces: Unremarkable. No pleural effusion. No pneumothorax. Heart/Mediastinum: Cardiomegaly. Bones/joints: Unremarkable. IMPRESSION: No acute findings. Left-sided PICC line.
[2024-03-11 14:14] VITALS: BP 138/87; PULSE 78; RESP 20; TEMP 36.7; O2SAT 98
[2024-03-11] MEDS: DAPTOmycin 1,000 MG in 0.9 % SODIUM CHLORIDE 50 ML 100 MG IV (14:14)
[2024-03-11] MEDS: SODIUM CHLORIDE 0.9% 10ML FLUSH SYRINGE 10 ML IV (14:14)
[2024-03-11 14:22] LABS: Basophils # 0.1 K/mm3 (0-0.2); Basophils % 1.1 % (0.1-2.0); Eosinophils # 0.3 K/mm3 (0.0-0.4); Eosinophils % 2.9 % (0.1-12.0); Hematocrit 47.6 % (42.0-52.0); Hemoglobin 15.9 g/dL (14.1-18.0); Lymphocytes # 2.1 K/mm3 (0.7-4.5); Lymphocytes % 21.6 % (10-50); Mean Corpuscular HGB Conc 33.4 g/dL (31.8-35.4); Mean Corpuscular Hemoglobin 28.8 pg (27.0-31.2); Mean Corpuscular Volume 86.2 fl (80-94); Mean Platelet Volume 8.2 fl (7.4-10.4); Monocytes # 0.5 K/mm3 (0.1-1.0); Monocytes % 4.8 % (1.7-9.3); Neutrophils # 6.8 K/mm3 (1.8-7.8); Neutrophils % 69.6 % (37.0-80.0); Platelet Count 159 K/mm3 (142-424); Red Blood Count 5.52 M/mm3 (4.60-6.20); Red Cell Distribution Width 13.9 % (11.5-17.5); White Blood Count 9.7 K/mm3 (4.8-10.8)
[2024-03-11 14:31] LABS: Alanine Aminotransferase 23 U/L (12-78); Albumin Level 3.7 g/dl (3.5-5.0); Albumin/Globulin Ratio 1.2 (1.1-1.8); Alkaline Phosphatase 62 U/L (38-126); Anion Gap 9.8 mEq/L (5-15); Aspartate Amino Transferase 22 U/L (17-59); Bilirubin,Total 0.5 mg/dl (0.2-1.3); Blood Urea Nitrogen 10 mg/dl (9-20); Calcium 9.1 mg/dl (8.4-10.2); Carbon Dioxide 27 mmol/L (22.0-30.0); Chloride 104 mmol/L (98-107); Creatine Kinase 44 U/L (55-170); Creatinine Clearance Estimated 257 mL/min (50-200); Estimated Glomerular Filt Rate 177 ml/min (>60); GFR (African American) 215 ML/MIN (>60); Globulin 3.2 g/dL (1.3-3.2); Glucose 113 mg/dl (74-100); Potassium 3.8 mmoL/L (3.5-5.1); Sodium 137 mmol/L (136-145); Total Protein,Serum 6.9 g/dl (6.3-8.2)
[2024-03-11 14:36] LABS: C-Reactive Protein 30.3 mg/L (0-4)
[2024-03-11 14:45] VITALS: BP 129/81; PULSE 74; RESP 20; O2SAT 98
[2024-03-11 14:53] LABS: Erythrocyte Sedimentation Rate 12 mm/hr (0-15)
--- NOTE | 2024-03-11 15:37 | PC.NURSE ---
03/11/24 1130 Nursing staff Ana Alexander RN with pt to perform PICC line placement.
--- NOTE | 2024-03-11 15:42 | PC.NURSE ---
03/11/24 1040 Nursing staff Ana Alexander RN in with pt to place PICC.
--- NOTE | 2024-03-11 15:46 | PC.NURSE ---
03/11/24 1130 Rad staff released report on cxr confirming placement of Picc-report vague. Ana Alexander RN to contact radiologist for clarification.
--- NOTE | 2024-03-11 15:50 | PC.NURSE ---
03/11/24 1210 Picc line repositioned and repeat cxr performed. Offered pt a lunch tray and pt denied.
== END 2024-03-11 14:50 | disposition home or self-care (01) ==
LOC: INF 10:01
PROVIDERS: PCP Nurse Practitioner Family; Visit Provider Podiatrist
DX: E11.621 Type 2 diabetes mellitus with foot ulcer (principal)
CPT/HCPCS: 71045; 80053; 82550; 85025; 85651; 86140; 96365; C1751; J0878

== ENCOUNTER 2024-03-16 09:26 | Outpatient (CLI) | payer MEDICARE, SELFPAY ==
[2024-03-16 10:11] LABS: Basophils # 0.1 K/mm3 (0-0.2); Basophils % 1.1 % (0.1-2.0); Eosinophils # 0.2 K/mm3 (0.0-0.4); Eosinophils % 2.6 % (0.1-12.0); Hematocrit 46.7 % (42.0-52.0); Lymphocytes # 1.7 K/mm3 (0.7-4.5); Lymphocytes % 21.4 % (10-50); Mean Corpuscular HGB Conc 34.3 g/dL (31.8-35.4); Mean Corpuscular Volume 84.6 fl (80-94); Monocytes # 0.4 K/mm3 (0.1-1.0); Monocytes % 4.5 % (1.7-9.3); Neutrophils # 5.6 K/mm3 (1.8-7.8); Neutrophils % 70.6 % (37.0-80.0); Platelet Count 172 K/mm3 (142-424); Red Blood Count 5.52 M/mm3 (4.60-6.20); Red Cell Distribution Width 14.2 % (11.5-17.5); White Blood Count 7.9 K/mm3 (4.8-10.8)
[2024-03-16 10:35] LABS: Alanine Aminotransferase 26 U/L (12-78); Albumin Level 3.8 g/dl (3.5-5.0); Albumin/Globulin Ratio 1.3 (1.1-1.8); Alkaline Phosphatase 58 U/L (38-126); Anion Gap 7.4 mEq/L (5-15); Aspartate Amino Transferase 26 U/L (17-59); Bilirubin,Total 0.6 mg/dl (0.2-1.3); Blood Urea Nitrogen 16 mg/dl (9-20); Calcium 9.4 mg/dl (8.4-10.2); Carbon Dioxide 26 mmol/L (22.0-30.0); Chloride 109 mmol/L (98-107); Creatine Kinase 84 U/L (55-170); Estimated Glomerular Filt Rate 120 ml/min (>60); GFR (African American) 146 ML/MIN (>60); Globulin 2.9 g/dL (1.3-3.2); Glucose 203 mg/dl (74-100); Potassium 4.4 mmoL/L (3.5-5.1); Sodium 138 mmol/L (136-145); Total Protein,Serum 6.7 g/dl (6.3-8.2)
[2024-03-16 10:41] LABS: C-Reactive Protein 25.2 mg/L (0-4)
[2024-03-16 11:36] LABS: Erythrocyte Sedimentation Rate 24 mm/hr (0-15)
[2024-03-18 17:26] LABS: CK-BB 0 % (0); CK-MB 0 % (0-3); CK-MM 100 % (97-100); Creatine Kinase,Total,Serum 99 U/L (49-439); Macro Type 1 0 % (Not Observed); Macro Type 2 0 % (Not Observed)
== END 2024-03-16 23:59 | disposition home or self-care (01) ==
PROVIDERS: PCP Nurse Practitioner Family; Visit Provider Podiatrist
DX: E11.621 Type 2 diabetes mellitus with foot ulcer (principal); L97.515 Non-pressure chronic ulcer of other part of right foot with muscle involvement without evidence of necrosis; R60.9 Edema, unspecified
CPT/HCPCS: 36415; 80053; 82550; 82552; 85025; 85651; 86140

== ENCOUNTER 2024-04-05 12:07 | Outpatient (CLI) | payer MEDICARE, SELFPAY | END 2024-04-05 23:59 | disposition home or self-care (01) | LOC: LAB.DROPOF 12:08 | PROVIDERS: PCP Otolaryngology; Visit Provider Otolaryngology | DX: L02.91 Cutaneous abscess, unspecified (principal) | CPT/HCPCS: 87070; 87077; 87186; 87205 ==

== ENCOUNTER 2024-04-13 14:00 | Outpatient (RCR) | payer MEDICARE, SELFPAY ==
--- NOTE | 2024-03-15 11:32 | [facility].PTOPWND ---
Rehab Outpt Wound Evaluation Rehab OP Wound Evaluation Start: 03/15/24 09:57 Freq: Status: Active Protocol: Document 03/15/24 10:53 SUSAN (Rec: 03/15/24 11:30 PHORNANCY [id number]) E-signed By Stewart Wallis, PT Subjective/History History History This is the initial PT wound eval for Raymon Guido, 49 yowm who presents with 2 DFU to his R foot. He reports he has had a wound on his R foot for ~ 1 yr. He is currently undergoing infusion of IV abx due to infection in the R foot . He reports mild pain, but also suffers from significant neuropathy in B hands and feet . 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 Subjective Subjective He reports pain is 4/10 currently in the R foot. No TTP noted at this time. No significant edema currently. New diagnosis of cancer in past 12 No months? 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 Drainage Description Serosanguineous Drainage Amount Small Primary Dressing collagen Wound Secondary Dressing Type Composite Comment optifoam gentle border lite Wound Debridement Method Sharps,Gauze,Mechanical Wound Debridement Amount of Tissue Minimal Removed Dressing Change Patient Tolerance Tolerated Well Right Lateral Dorsal Foot Wound Type Diabetic Foot Ulcer Is This a Chronic Wound Yes Wound Length (cm) 1.0 Wound Width (cm) 0.9 Wound Depth (cm) 0.2 Wound Bed Appearance Beefy Red Percentage Granulated (%) 100 Wound Margins Description Well Defined Surrounding Tissue Appearance [facility] Drainage Description Serosanguineous Drainage Amount Small Primary Dressing collagen Wound Secondary Dressing Type Composite Comment optifoam gentle border lite Wound Debridement Method Sharps,Gauze,Mechanical Wound Debridement Amount of Tissue Minimal Removed Dressing Change Patient Tolerance Tolerated Well Wound Problems/Impairments Impairments Problems/Impairmments Impaired Balance,Wound Care Needs,Subjective C/O Pain, Impaired Self Care/Self Management Prognosis Rehab Potential Good Comment Skilled therapy is indicated to reduce R foot wound size and return pt to PLOF. Clinical Impression Consistent with Diagnosis Yes Short Term Goals Number of Weeks 4 Decrease Wound Area Yes: by 25% [facility] Goals Number of Weeks 6-8 Decrease Wound Area Yes: by 75% Patient to be Ind w/ HEP Yes Patient to be Ind w/ Home Wound Care/ Yes Dressing Changes Outpatient Therapy Plan of Care Treatment Plan May Include Therapeutic Exercise Including Home Yes Exercise Program Manual Therapy Techniques Yes Neuromuscular Re-education Yes Therapeutic Activities to Return to Yes Previous Functional/Work Level ADL/Self Care Education Yes Ultrasound/Phonophoresis Yes Wound Care Yes Eval/Re-Eval Yes Frequency Times per week 1-2 Duration Number of Weeks 6-8 Addendums This patient is a candidate for social No or vocational rehab? Patient/Guardian verbally acknowledges Yes understanding of treatment program and consents to further treatment? Patient/Guardian verbally acknowledges Yes understanding of diagnosis, prognosis and goals for treatment? Eval Complexity PT Charges 98585 - High Complexity PHYSICIAN CERTIFICATION: I certify the specified therapy services for Raymon Spiveycker are required, authorized, and reviewed every 30 days.
--- NOTE | 2024-04-13 14:32 | [facility].RHREAS ---
Rehab Reassessment Rehab OP Re-assessment Start: 03/15/24 09:57 Freq: Status: Active Protocol: Document 04/13/24 14:28 USSAN (Rec: 04/13/24 14:31 PHORNANCY [id number]) E-signed By Stewart Wallis, PT Rehab Re-assessment Subjective Subjective Pt has no c/o pain in the R foot this date. Reports he feels his wounds are healing steadily, but dislikes his PICC line. Objective Objective Notes Wounds appears healthy overall , but continue with hyperkeratotic rim. Pt is present for 1st appointment since IE 29 days ago. R plantar great toe wound: L= 0.4 cm, W= 0.5 cm, D= 0.1 cm R plantar lateral foot wound: L= 1.0 cm, W= 1.0 cm, D= 0.2 cm Assessment Progress Assessment Progressing as Expected Assessment Notes Pt has shown overall reduction in surface area of R great toe wound, but R lateral foot wound has not changed much. Skilled therapy remains indicated to provide consistent sharp excisional debridement of DFU for pt which is best practice to achieve healing and return pt to PLOF. Patient goals met ST LT/3 Plan Plan Continue per initial POC. Frequency of Therapy 1-2 x/wk Duration of therapy 6 wks Time and Billing Re-Eval Time 11 Re-Eval Billing Units 0 Charge for PT reassessment? No PHYSICIAN CERTIFICATION: I certify the specified therapy services for Raymon Guido are required, authorized, and reviewed every 30 days.
== END 2024-04-13 23:59 | disposition home or self-care (01) ==
LOC: PT 14:00
PROVIDERS: Visit Provider Podiatrist
DX: E11.621 Type 2 diabetes mellitus with foot ulcer (principal); L97.515 Non-pressure chronic ulcer of other part of right foot with muscle involvement without evidence of necrosis
CPT/HCPCS: 97163; 97597

== ENCOUNTER 2024-05-18 11:36 | Outpatient (CLI) | payer MEDICARE, SELFPAY ==
[2024-05-18] MEDS: NEOSPORIN OINTMENT 0.9GM UDP 1 EACH TP (12:40)
== END 2024-05-18 11:50 | disposition home or self-care (01) ==
LOC: INF 11:38
PROVIDERS: Visit Provider Nurse Practitioner
DX: Z45.2 Encounter for adjustment and management of vascular access device (principal)
CPT/HCPCS: G0463